=== PATIENT | male | born 1950 | race Caucasian/White ===

== ENCOUNTER 2016-07-07 20:49 | Emergency (ER) | payer MEDICARE ==
--- NOTE | ~2016-07-07 | CR72 ---
[facility] A Service of [facility] & [facility] RADIOLOGY TEXT RESULTS PATIENT: EULALIA VILLAFANA LOCATION: [facility] : [birth year] UNIT #: [id number] AGE: [address]: Tamiko Kelsey MD SEX: M ORDER DR: [id number] [facility] [address] [place], [place] [address] [id number] E MR#: [id number] Acc #: [id number] NAME: EULALIA VILLAFANA : 1950 SEX: M STUDY DATE/TIME: 07/07/2016 20:37 UNIT: [facility] ROOM: STUDY DESCRIPTION: CR Chest Single View Portable Attending Physician: Tamiko Kelsey M.D. Ordering Physician: Tamiko Kelsey M.D. Primary Care Physician: Leti Pan MEDICAL IMAGING REPORT This report is preliminary unless electronic signature is present EXAM Portable chest HISTORY Cough, chest pain, symptoms for over a week, but now getting worse. COMPARISON 06/13/2016 FINDINGS Portable view of the chest demonstrates no infiltrates or effusions. Mild cardiomegaly. Mediastinum, bony thorax unremarkable except for degenerative changes right AC joint. No pneumothorax. Dictated by... Agnes Patrick M.D. THIS IS AN ELECTRONICALLY VERIFIED REPORT Agnes Patrick M.D. at 07/08/2016 5:04 PM RICO/nii TD: 07/08/2016 08:16 JOB #: [id number] MEDICAL IMAGING REPORT COPY
[~2016-07-07 20:49] MED LIST: GLUCOPHAGE500 M1 PO; LISINOPRIL5 MG PO; NEURONTIN PO
[2016-07-07 21:10] LABS: INFLUENZA A NEG (NEG); INFLUENZA B NEG (NEG)
== END 2016-07-07 22:05 | disposition home or self-care (01) ==
LOC: CED 20:49
PROVIDERS: Student in an Organized Health Care Education/Training Program
DX: R05 Cough (principal); R06.09 Other forms of dyspnea; E11.9 Type 2 diabetes mellitus without complications; I10 Essential (primary) hypertension; E78.5 Hyperlipidemia, unspecified; Z90.49 Acquired absence of other specified parts of digestive tract
CPT/HCPCS: 71010; 87804; 94640; 99283

== ENCOUNTER 2016-07-29 14:44 | Inpatient (IN) | payer MEDICARE ==
--- NOTE | ~2016-07-29 | EKG ---
PATIENT: EULALIA VILLAFANA UNIT #: [id number] Ventricular Rate: 72 BPM Atrial Rate: 72 BPM P-R Interval: 136 ms QRS Duration: 142 ms Q-T Interval: 442 ms QTC Calculation(Bezet): 483 ms P Boston: 25 degrees Calculated R Boston: 41 degrees Calculated T Boston: 27 degrees Diagnosis Line: Normal sinus rhythm Diagnosis Line: Right bundle branch block Diagnosis Line: Possible Inferior infarct , age undetermined Diagnosis Line: Abnormal ECG Diagnosis Line: When compared with ECG of 14-JUN-2016 06:22, Diagnosis Line: Nonspecific T wave abnormality now evident in Diagnosis Line: Inferior leads Diagnosis Line: Nonspecific T wave abnormality now evident in Diagnosis Line: Anterior leads Diagnosis Line: Confirmed by INGRID HAYS MD ([id number]) on Diagnosis Line: 07/30/2016 2:23:59 PM INTERPRETING MD: LIS PORTER
--- NOTE | ~2016-07-29 | CR72 ---
[facility] A Service of [facility] RADIOLOGY TEXT RESULTS PATIENT: EULALIA VILLAFANA LOCATION: [address] : [birth year] UNIT #: [id number] AGE: [address]: Luke Thomas MD SEX: M ORDER DR: [id number] [facility] [address] [place], [place] [address] [id number] E MR#: [id number] Acc #: [id number] NAME: EULALIA VILLAFANA : 1950 SEX: M STUDY DATE/TIME: 07/29/2016 14:38 UNIT: [facility] ROOM: STUDY DESCRIPTION: CR Chest Single View Portable Attending Physician: Bahman Kulkarni D.O. Ordering Physician: Bahman Kulkarni D.O. Primary Care Physician: Thuy Ferguson MEDICAL IMAGING REPORT This report is preliminary unless electronic signature is present EXAM AP portable chest dated 07/29 COMPARISON 07/07 HISTORY Shortness of breath, fluid on lungs beginning today. FINDINGS An AP view of the chest is obtained. Cardiac size is enlarged. There is a large left pleural effusion with underlying left lower lobe atelectasis and there is a small right pleural effusion. CONCLUSION Cardiomegaly. Development of a large left pleural effusion with atelectasis in the left base. Small right pleural effusion. Dictated by... Carroll Correa M.D. THIS IS AN ELECTRONICALLY VERIFIED REPORT Carroll Correa M.D. at 07/31/2016 3:10 PM GM/linsey TD: 07/29/2016 20:20 JOB #: [id number] MEDICAL IMAGING REPORT Page 1 of 1 COPY
--- NOTE | ~2016-07-29 | CT16 ---
[facility] A Service of [facility] RADIOLOGY TEXT RESULTS PATIENT: EULALIA VILLAFANA LOCATION: [facility] : [birth year] UNIT #: [id number] AGE: [address]: Luke Thomas MD SEX: M ORDER DR: [id number] [facility] [address] [place], [place] [address] [id number] I MR#: [id number] Acc #: [id number] NAME: EULALIA VILLAFANA : 1950 SEX: M STUDY DATE/TIME: 07/29/2016 18:01 UNIT: [facility] ROOM: 5 STUDY DESCRIPTION: CT Angio Chest for PE Attending Physician: Luke Thomas M.D. Ordering Physician: Bahman Kulkarni D.O. Primary Care Physician: Thuy Ferguson MEDICAL IMAGING REPORT This report is preliminary unless electronic signature is present EXAM CT angiogram of the chest, 07/29/2016 HISTORY D-dimer 2802 at 09:31 hours. Cough, short of air [address] exam was performed with one or more of the following radiation dose reduction techniques: automatic exposure control, adjustment of mA and/or kV according to patient size, and iterative reconstruction. FINDINGS CT pulmonary angiography performed with intravenous administration 100 mL Isovue-370. Comparison 06/14/2016. Three-dimensional reconstructions performed through pulmonary arteries. Visualized thyroid unremarkable. No axillary adenopathy. Small mediastinal lymph nodes slightly more prominent than on prior examination. Largest of these are in the paratracheal region measuring up to approximately 5.0-6.0 mm in short axis, likely reactive in nature. Heart itself is normal in size. There is a very large pericardial effusion markedly increased in volume from prior examination now measuring approximately 2.6 cm along the right heart and about 3.7 cm along the left heart. It previously measured up to 1.4 cm in maximum diameter. I see no pericardial enhancement. There is some reflux of contrast material into the inferior vena cava and hepatic veins which could be a reflection of elevated right heart pressure. There is a small to moderate right pleural effusion which is new. There is a large left pleural effusion extending to the apex, markedly increased in volume from prior study. Trace ascites adjacent to the liver. This is new and is not a drainable fluid collection. Status post cholecystectomy. No biliary ductal dilatation. The hepatic parenchyma unremarkable. The spleen, pancreas, adrenal glands, kidneys notable for a small cyst in the upper pole of the left kidney. Esophagus, visualized stomach, small bowel and colon show no acute abnormality. Pulmonary parenchyma imaged during [facility]. [facility] A Service of [facility] RADIOLOGY TEXT RESULTS PATIENT: EULALIA VILLAFANA LOCATION: [address] : [birth year] UNIT #: [id number] AGE: [address]: Luke Thomas MD SEX: M ORDER DR: the expiratory phase of respiration given tracheal contour. Some central bronchovascular crowding. Respiratory motion artifact. Mild peripheral linear interstitial prominence likely reflecting combination of atelectasis and interstitial edema. Dependent atelectasis in the right lower lobe is mild. There is [id number] dependent atelectasis in the left upper lobe and there is near complete collapse of the left lower lobe with no central obstructing process seen. The pulmonary arteries are well opacified. No PE. No aortic dissection or aneurysm. The visualized aortic branch vessels appear patent. Bony structures show degenerative changes in the spine but no acute-appearing bony abnormality. IMPRESSION 1. No PE. No evidence of aortic aneurysm or dissection. 2. There is a very large pericardial effusion measuring up to approximately 3.7 cm in width along the left heart. Markedly increased from June 14, 2016 when it measured up to 1.4 cm in width. No pericardial enhancement. 3. There is some reflux of contrast material into the inferior vena cava and hepatic veins. This raises the possibility of elevated right heart pressure. Whether this relates to the large pericardial effusion is somewhat unclear. I do not have clear morphologic evidence of significant mass effect on the cardiac chambers from the large effusion but weight should be given the clinical assessment. 4. Large left pleural effusion markedly increased in volume from June. It extends to the apex. Small to moderate right pleural effusion is new compared to June. 5. Near complete collapse of the left lower lobe. No central obstructing process is seen. Milder dependent atelectasis in the left upper lobe and minimal dependent atelectasis in the right lower lobe. 6. There is some fine linear interstitial densities in the periphery of the lungs which may be a reflection of atelectasis given expiratory phase imaging and/or some degree of mild interstitial edema. 7. Previously seen micronodule in the superior segment of the left lower lobe is less conspicuous on today's examination. 12-month CT followup recommended to confirm stability. 8. No acute abnormality seen in the upper abdomen. Stable postoperative changes of cholecystectomy. 9. Small mediastinal lymph nodes are slightly more pronounced than on prior study and felt to be reactive in nature given pericardial, pleural and parenchymal findings. Dictated by... Carroll Beasley M.D. THIS IS AN ELECTRONICALLY VERIFIED REPORT Carroll Beasley M.D. at 07/30/2016 2:17 PM YUAN/tere [facility]. [facility] A Service of [facility] RADIOLOGY TEXT RESULTS PATIENT: EULALIA VILLAFANA LOCATION: [address] : [birth year] UNIT #: [id number] AGE: [address]: Luke Thomas MD SEX: M ORDER DR: TD: 07/30/2016 09:31 JOB #: [id number] MEDICAL IMAGING REPORT Page 1 of 1 COPY
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
[2016-07-29 13:26] LABS: BASOPHIL% 0.5 % (0-2.5); EOSINOPHIL# 0.2 X10e3 (0-0.7); EOSINOPHIL% 2.8 % (0.0-7.0); HEMATOCRIT 39.6 % (38.0-50.0); HEMOGLOBIN 12.7 gm/dL (13.0-16.0); LYMPHOCYTE# 1.3 X10e3 (1.0-3.5); LYMPHOCYTE% 16.9 % (17.0-45.0); MEAN CELL VOLUME 80.6 FL (83-96); MEAN CORPUSCULAR HEMOGLOBIN 25.9 PG (28-34); MEAN CORPUSCULAR HGB CONC 32.1 g/dL (30-36); MONOCYTE# 0.9 X10e3 (0-1.0); MONOCYTE% 11.5 % (3.0-12.0); NEUTROPHIL# 5.3 X10e3 (1.5-7.1); NEUTROPHIL% 68.3 % (40-75); PLATELET COUNT 400 X10e3 (140-420); RED BLOOD COUNT 4.91 X10e (3.90-5.60); RED CELL DISTRIBUTION WIDTH 14.5 % (11.0-15.5); WHITE BLOOD COUNT 7.8 X10e3 (4.0-10.5)
[2016-07-29 13:27] LABS: DIFF IND NO
[2016-07-29 13:53] LABS: BLOOD UREA NITROGEN 13 mg/dL (9-23); BUN/CREATININE RATIO 14.44; CALCIUM SERUM 9.4 mg/dL (8.4-10.2); CARBON DIOXIDE 27 mmol/L (22-31); CHLORIDE 104 mmol/L (100-111); CREATININE SERUM 0.9 mg/dL (0.6-1.4); GLOM FILT RATE Estimated ABOVE60 mL/min (>60); GLUCOSE FASTING 166 mg/dL (70-110); POTASSIUM 4.4 mmol/L (3.5-5.1); SODIUM 140 mmol/L (135-145)
[2016-07-29 14:28] LABS: INR 1.1; PARTIAL THROMBOPLASTIN TIME 28.7 SECONDS (23.5-31.3)
[2016-07-29 14:42] LABS: ALBUMIN SERUM 4.1 g/dL (3.5-5.0); BILIRUBIN, DIRECT 0.3 mg/dL (0.0-0.2); BILIRUBIN,TOTAL 1.3 mg/dL (0.2-2.0); PROTEIN TOTAL SERUM 7.7 g/dL (6.0-8.3)
[2016-07-29 15:07] LABS: POC - CKMB 2.8 ng/mL (0.0-7.9); POC - TROPONIN <0.05 ng/mL (<=0.05)
[2016-07-29] MEDS ORDERED: LISINOPRIL2.5 MG PO (18:26)
[2016-07-29] MEDS ORDERED: ZYRTEC10 M1 PO (18:26)
[2016-07-29] MEDS ORDERED: FLEXERIL10 MG PO (18:26)
[2016-07-29] MEDS ORDERED: GABAPENTIN300 MG PO (18:27)
[2016-07-29] MEDS ORDERED: METFORMIN PO (18:28)
[2016-07-30 06:55] LABS: HEMATOCRIT 37.5 % (38.0-50.0); HEMOGLOBIN 12.1 gm/dL (13.0-16.0); MEAN CELL VOLUME 80.5 FL (83-96); MEAN CORPUSCULAR HGB CONC 32.3 g/dL (30-36); MEAN PLATELET VOLUME 6.9 FL (6.5-11.5); RED BLOOD COUNT 4.65 X10e (3.90-5.60); RED CELL DISTRIBUTION WIDTH 14.2 % (11.0-15.5); WHITE BLOOD COUNT 7.5 X10e3 (4.0-10.5)
[2016-07-30 07:28] LABS: BLOOD UREA NITROGEN 10 mg/dL (9-23); CARBON DIOXIDE 22 mmol/L (22-31); CHLORIDE 106 mmol/L (100-111); CREATININE SERUM 0.8 mg/dL (0.6-1.4); GLOM FILT RATE Estimated ABOVE60 mL/min (>60); GLUCOSE FASTING 117 mg/dL (70-110); POTASSIUM 3.9 mmol/L (3.5-5.1); SODIUM 138 mmol/L (135-145)
== END 2016-07-30 12:10 | DRG 316 ==
LOC: CED 14:44 → CEDOF 19:20 → C5C 21:54 → CICCU2 07-30 11:40
PROVIDERS: Emergency Medicine
PROC: B32TYZZ Computerized Tomography (CT Scan) of Left Pulmonary Artery using Other Contrast (ICD-10-PCS; principal; 2016-07-29)
PROC: B32SYZZ Computerized Tomography (CT Scan) of Right Pulmonary Artery using Other Contrast (ICD-10-PCS; 2016-07-29)
DX: I31.3 Pericardial effusion (noninflammatory) (principal); I10 Essential (primary) hypertension; E78.5 Hyperlipidemia, unspecified; E11.9 Type 2 diabetes mellitus without complications; Z87.891 Personal history of nicotine dependence; F10.21 Alcohol dependence, in remission; Z90.49 Acquired absence of other specified parts of digestive tract
CPT/HCPCS: 36415; 71010; 71275; 80048; 80076; 82553; 82947; 83880; 84484; 85025; 85027; 85379; 85610; 85730; 87040; 93005; 93306; 99285; Q9967